=== PATIENT | male | born 1965 | race Caucasian/White ===

== ENCOUNTER 2016-04-25 13:46 | Emergency (ER) | payer MEDICARE, MEDICAID ==
[~2016-04-25] VITALS: Ht 175.3 cm; Wt 74.8 kg
[~2016-04-25 13:46] MED LIST: ACET325T53 PO; CODE118S2 PO; ENOX40DI SQ; Folic Acid PO; LORA1TAB82 PO; MULT-24 PO; MUPI15CR12 TP; PANT40TA2 PO
[2016-04-25] MEDS ORDERED: ONDANSETRON HCL/PF 4 MG/2 ML VIAL IV ONE (14:30)
[2016-04-25] MEDS ORDERED: IV NS 0.9% 1,000 ML BAG IV ONE (14:30)
[2016-04-25 14:36] LABS: BASOPHILS % (AUTO) 0.8 % (0.0-2.0); DIFF TOTAL % 100 %; EOSINOPHILS % (AUTO) 0.5 % (0.0-6.0); HEMATOCRIT 45 % (39-51); HEMOGLOBIN 14.3 g/dL (13.5-17.5); LYMPHOCYTES # (AUTO) 1.8 /CMM (0.8-4.8); LYMPHOCYTES % (AUTO) 55.2 % (20.0-44.0); MEAN CORPUSCULAR HEMOGLOBIN 30 PG (26.0-33.0); MEAN CORPUSCULAR HGB CONC 32 g/dl (31.0-36.0); MEAN CORPUSCULAR VOLUME 94 fL (80-96); MONOCYTES # (AUTO) 0.5 /CMM (0.1-1.30); MONOCYTES % (AUTO) 15.3 % (2.0-12.0); NEUTROPHILS # (AUTO) 0.9 /CMM (1.8-8.9); NEUTROPHILS % (AUTO) 28.2 % (43.0-81.0); PLATELET COUNT (AUTO) 92 /CMM (150-450); RED BLOOD CELL COUNT(AUTO) 4.78 MIL/uL (4.5-6.0); WHITE BLOOD COUNT (AUTO) 3.2 K/uL (4.3-11.0)
[2016-04-25] MEDS ORDERED: IV NS 0.9% 1,000 ML ONE (14:37)
[2016-04-25] MEDS ORDERED: ONDANSETRON HCL/PF 4 MG/2 ML VIAL ONE (14:37)
[2016-04-25] MEDS ORDERED: IV SET PRIMARY 1 EA INFUS.SET MC ONE (14:37)
[2016-04-25 14:46] LABS: CALCIUM, SERUM 8.4 mg/dL (8.5-10.1); CREATININE 0.9 mg/dL (0.6-1.3); POTASSIUM 3.7 mmol/L (3.5-5.1)
[2016-04-25 14:51] LABS: INR 0.92 (0.87-1.13); PROTHROMBIN TIME 9.7 SECS (9.5-12.7)
[2016-04-25 14:52] LABS: ALBUMIN 3.3 g/dL (3.4-5.0); BILIRUBIN,DIRECT 0.2 mg/dL (0.0-0.2); BILIRUBIN,TOTAL 0.3 mg/dL (0.2-1.0); INDIRECT BILIRUBIN 0.1 mg/dL (0.0-1.1); TOTAL PROTEIN, SERUM 6.8 g/dL (6.4-8.2)
[2016-04-25] MEDS ORDERED: CHLORDIAZEPOXIDE HCL 25 MG CAPSULE ONE (15:38)
[2016-04-25 15:40] LABS: LYMPHOCYTES % (MANUAL) 48 % (16-48); PLATELET ESTIMATE DECREASED
[2016-04-25 15:41] LABS: ANISOCYTOSIS 1+
[2016-04-25 15:56] VITALS: BP 148/83
[2016-04-25] MEDS ORDERED: CHLORDIAZEPOXIDE HCL 25 MG CAPSULE PO ONE (21:30)
== END 2016-04-25 15:56 | disposition home or self-care (01) ==
LOC: ER 13:47
DX: K92.1 Melena (principal); F10.10 Alcohol abuse, uncomplicated; D69.6 Thrombocytopenia, unspecified; F20.9 Schizophrenia, unspecified; F42.9 Obsessive-compulsive disorder, unspecified; F43.10 Post-traumatic stress disorder, unspecified; F31.9 Bipolar disorder, unspecified; F17.200 Nicotine dependence, unspecified, uncomplicated; Z88.8 Allergy status to other drugs, medicaments and biological substances; Z59.0 Homelessness
CPT/HCPCS: 36415; 71010; 80048; 80076; 83690; 85025; 85730; 86850; 93005; 96361; 96374; 99285; A4606; J2405; J7030; Z7610